=== PATIENT | female | born 1970 | race Asian ===

== ENCOUNTER 2018-11-29 06:07 | Day surgery (SDC) | payer BC ==
[2018-11-29] MEDS ORDERED: FENTAnyl 50 MCG/ML VIAL (08:48)
[2018-11-29] MEDS ORDERED: MIDAZOLAM 1 MG/ML 2 ML INJ ×2 (08:48→08:49)
== END 2018-11-29 11:45 | disposition home or self-care (01) ==
LOC: GIL 06:07
DX: Z12.11 Encounter for screening for malignant neoplasm of colon (principal); K64.8 Other hemorrhoids
CPT/HCPCS: 45378

== ENCOUNTER 2019-05-19 06:11 | Day surgery (SDC) | payer BC ==
[2019-05-19] MEDS ORDERED: FENTAnyl 50 MCG/ML VIAL (08:07)
[2019-05-19] MEDS ORDERED: MIDAZOLAM 1 MG/ML 2 ML INJ (08:07)
== END 2019-05-19 08:34 | disposition home or self-care (01) ==
LOC: GIL 06:11
DX: K21.9 Gastro-esophageal reflux disease without esophagitis (principal); K29.50 Unspecified chronic gastritis without bleeding
CPT/HCPCS: 43239; 88305; 88312